=== PATIENT | male | born 1960 | race Caucasian/White ===

== ENCOUNTER 2019-08-10 13:39 | Emergency (ER) | payer BC, OTHER ==
[2019-08-10] MEDS ORDERED: Acetaminophen 325 MG Tab PO ONE (14:08)
[2019-08-10] MEDS ORDERED: Orphenadrine 100 MG Tab.ER PO ONE (14:08)
--- NOTE | 2019-08-10 14:13 | EDM.PDOC ---
ED HPI GENERAL MEDICAL PROBLEM - General Chief Complaint: Back Pain or Injury Stated Complaint: LOWER BACK PAIN Time Seen by Provider: 08/10/19 13:55 Source of Information: Reports: Patient, RN Notes Reviewed History Limitations: Reports: No Limitations - History of Present Illness INITIAL COMMENTS - FREE TEXT/NARRATIVE: Patient is a 59-year-old male who presents to the ED for his new onset lower back pain. Patient notes for the past week or 2, he has been having issues with bilateral low back pain. He is never had back issues prior to this. Patient states that the pain does seem to worsen with movement, and if he bends over, he states that this ends quite a shooting pain through his back. He notes that it gets better if he is sitting with support, or standing. Patient notes that the pain does radiate some down the back of his leg at times. He states that the pain is kind of a dull ache. He denies any saddle anesthesia, or loss of bowel/bladder control. [facility] and [facility] to call them for an appointment but they directed him to the ER for further evaluation and management. Patient denies any trauma, or any sort of heavy lifting that he would have done to aggravate this issue. Patient also states is very cautious about taking [id number] pain medications as he states his kidney function is impaired; so he is not taking any Tylenol or ibuprofen for this. He is a type II diabetic. patient states that he denies any other sick- like symptoms, fever/chills, acute cough/shortness of breath, chest pain or any abdomen pain. - Related Data Allergies Allergy/AdvReac Type Severity Reaction Status Date / Time No Known Allergies Allergy Verified 08/10/19 13:50 Home Meds: Home Meds Alogliptin Benzoate [Alogliptin] 25 mg PO DAILY 08/10/19 [History] Orphenadrine [Norflex] 100 mg PO BID PRN #20 tab 08/10/19 [Rx] atorvaSTATin Calcium [Atorvastatin Calcium] 20 mg PO DAILY 08/10/19 [History] glipiZIDE [Glipizide ER] 20 mg PO BID 08/10/19 [History] lisinopriL [Lisinopril] 10 mg PO DAILY 08/10/19 [History] metFORMIN HCl [Metformin HCl] 1,000 mg PO BID 08/10/19 [History] predniSONE 20 mg PO ASDIRECTED #15 tab 08/10/19 [Rx] Past Medical History Endocrine/Metabolic History: Reports: Diabetes, Type II Social & Family History - Tobacco Use Smoking Status *Q: Never Smoker - Caffeine Use Caffeine Use: Reports: None - Recreational Drug Use Recreational Drug Use: No ED ROS GENERAL - Review of Systems Review Of Systems: Comprehensive ROS is negative, except as noted in HPI. ED EXAM,LOWER BACK PAIN/INJURY - Physical Exam Exam: See Below Exam Limited By: No Limitations General Appearance: Alert, WD/WN, No Apparent Distress Respiratory/Chest: No Respiratory Distress, Lungs Clear, Normal Breath Sounds, No Accessory Muscle Use, Chest Non-Tender Cardiovascular: Normal Peripheral Pulses, Regular Rate, Rhythm, No Murmur GI/Abdominal: Normal Bowel Sounds, Soft, Non-Tender, No Distention, No Mass Back Exam: Normal Inspection, Full Range of Motion, Muscle Spasm (bilateral lo wer back, at level of iliac crest) Extremities: Normal Inspection, Normal Capillary Refill Neurological: Alert, Normal Mood/Affect, Normal Dorsiflexion, Normal Plantar Flexion, Normal Gait, Normal Reflexes, No Motor/Sensory Deficits, Oriented x 3. No: Straight Leg Raise (L), Straight Leg Raise (R), Saddle Anesthesia Psychiatric: Normal Affect, Normal Mood Skin Exam: Warm, Dry, Intact, Normal Color, No Rash Course - Vital Signs Last Recorded V/S: Last Vital Signs Temp 98.7 F 08/10/19 13:46 Pulse 95 08/10/19 13:46 Resp 13 08/10/19 13:46 BP 145/89 H 08/10/19 13:46 Pulse Ox 98 08/10/19 13:46 - Orders/Labs/Meds Labs: Laboratory Tests 08/10/19 08/10/19 Range/Units 14:24 14:24 WBC 8.81 (4.23-9.07) K/mm3 RBC 4.67 (4.63-6.08) M/mm3 Hgb 14.1 (13.7-17.5) gm/dl Hct 41.1 (40.1-51.0) % MCV 88.0 (79.0-92.2) fl MCH 30.2 (25.7-32.2) pg MCHC 34.3 (32.2-35.5) g/dl RDW Std Deviation 39.7 (35.1-43.9) fL Plt Count 256 (163-337) K/mm3 MPV 9.2 L (9.4-12.3) fl Neut % (Auto) 60.9 (34.0-67.9) % Lymph % (Auto) 27.1 (21.8-53.1) % Wal[place] % (Auto) 9.3 (5.3-12.2) % Eos % (Auto) 1.5 (0.8-7.0) Baso % (Auto) 0.5 (0.1-1.2) % Neut # (Auto) 5.37 (1.78-5.38) K/mm3 Lymph # (Auto) 2.39 (1.32-3.57) K/mm3 Waldo # (Auto) 0.82 (0.30-0.82) K/mm3 Eos # (Auto) 0.13 (0.04-0.54) K/mm3 Baso # (Auto) 0.04 (0.01-0.08) K/mm3 Sodium 140 (136-145) mEq/L Potassium 4.0 (3.5-5.1) mEq/L Chloride 102 (98-107) mEq/L Carbon Dioxide 25 (21-32) mEq/L Anion Gap 17.0 H (5-15) BUN 34 H (7-18) mg/dL Creatinine 1.8 H (0.7-1.3) mg/dL Est Cr Clr Drug Dosing 44.73 mL/min Estimated GFR (MDRD) 39 (>60) mL/min BUN/Creatinine Ratio 18.9 H (14-18) Glucose 189 H (74-106) mg/dL Calcium 9.0 (8.5-10.1) mg/dL Total Bilirubin 0.7 (0.2-1.0) mg/dL AST 12 L (15-37) U/L ALT 31 (16-63) U/L Alkaline Phosphatase 65 (46-116) U/L Total Protein 6.9 (6.4-8.2) g/dl Albumin 3.8 (3.4-5.0) g/dl Globulin 3.1 gm/dL Albumin/Globulin Ratio 1.2 (1-2) Meds: Medications Discontinued Medications Generic Name Dose Route Start Last Admin Trade Name Michaelq PRN Reason Stop Dose Admin Acetaminophen 650 mg 08/10/19 14:08 08/10/19 14:31 Tylenol PO 08/10/19 14:09 650 mg NOW ONE Administration Orphenadrine Citrate 100 mg 08/10/19 14:08 08/10/19 14:31 Norflex PO 08/10/19 14:09 100 mg ONETIME ONE Administration - Re-Assessments/Exams Free Text/Narrative Re-Assessment/Exam: 08/10/19 14:13 Patient presents to the ED for his lower back pain, as this is new onset, will get lumbar films along with basic labs to r/o other possible etiology. However it is very likely that this is musculoskeletal in nature, as his pain is reproducible on exam. Suspicious for SI dysfunction vs discogenic pain in origin. 08/10/19 14:42 Lumbar x-ray is done, and demonstrates osteophytes at L3-L4 and L4-L5, a possible bulge posteriorly of L4, and loss of lumbar lordosis, which is suggestive of diffuse muscle spasm. This is likely the etiology of his back pain. 08/10/19 14:49 Official radiology report demonstrates slight degenerative change, but no other acute abnormalities. No subluxation or fractures, vertebral bodies are of appropriate height. Disc spaces are maintained; however I did have Dr. Ignacio review the films with me and he does think that L4 did have a posterior bulge to it. 08/10/19 14:58 Patient's metabolic panel is back, demonstrates elevated creatinine of 1.8, GFR 39, elevated BUN of 34. Which would be collaborative with him saying he has impaired kidney function. Puts him in the realm of moderate kidney disease at this time. He states that this is similar to current labs at [facility]. Departure - Departure Time of Disposition: 15:06 Disposition: Home, Self-Care 01 Condition: Good Clinical Impression: Muscle spasm of back Low back pain Qualifiers: Chronicity: acute Back pain laterality: bilateral Sciatica presence: with sciatica Sciatica laterality: sciatica of left side Qualified Code(s): M54.42 - Lumbago with sciatica, left side - Discharge Information *PRESCRIPTION DRUG MONITORING PROGRAM REVIEWED*: No *COPY OF PRESCRIPTION DRUG MONITORING REPORT IN PATIENT LICHA: No Prescriptions: Orphenadrine [Norflex] 100 mg PO BID PRN #20 tab PRN Reason: Spasms predniSONE 20 mg PO ASDIRECTED #15 tab Instructions: Muscle Cramps and Spasms, [id number], Back Exercises, [id number] Referrals: Julieth Martinez MD [Primary Care Provider] - Forms: ED Department Discharge, ED Return to Work/School Form Additional Instructions: You were evaluated in the ER today regarding your lower back pain. X-rays were taken, and demonstrated a possible bulge of L4 disc level with other degenerative arthritic change. You would likely benefit from outpatient MRI, please discuss this with your primary care provider, in a nonurgent matter. You have been started on a prescription called [place], for muscle spasms, please take 1 tab 2 times a day. You were also started on prednisone for your back pain, as your kidney function is impaired, you cannot take NSAIDs. Prednisone is 1 tab twice a day for 5 days, then 1 tab once a day for 5 days. Please note that prednisone can make your blood sugars fluctuate, so please expect that your blood sugars might become a little more uncontrolled while taking this medication. You may try heat packs/ice packs to your back, to also try to help alleviate some of the pain. Please return to the ER at any time if your symptoms change or worsen. Sepsis Event Note (ED) - Evaluation Sepsis Screening Result: No Definite Risk - Focused Exam Vital Signs: Vital Signs Temp Pulse Resp BP Pulse Ox 08/10/19 13:46 98.7 F 95 13 145/89 H 98
--- NOTE | 2019-08-10 14:45 | CR ---
Lumbar spine: AP, lateral and coned-down lateral view centered to the lumbosacral junction were obtained. Anterior osteophytes are seen at L5 as well as more prominent osteophytes at L3-L4 and L4-L5. Disc spaces and vertebral body heights are maintained. Pedicles are intact. Visualized transverse and spinous processes are intact. Sacroiliac joints appear unremarkable. No subluxation or fracture is seen. Impression: 1. Slight degenerative change. 2. Nothing acute is appreciated. Diagnostic code #2 Study was dictated in MDT
== END 2019-08-10 15:25 | disposition home or self-care (01) ==
LOC: JD.ED 13:39
DX: M54.42 Lumbago with sciatica, left side (principal); M62.830 Muscle spasm of back; E11.9 Type 2 diabetes mellitus without complications; Z79.84 Long term (current) use of oral hypoglycemic drugs; Z79.899 Other long term (current) drug therapy
CPT/HCPCS: 36415; 72100; 80053; 85025; 99283; A9270